=== PATIENT | female | born 1995 | race Caucasian/White ===

== ENCOUNTER 2022-10-10 14:00 | Inpatient (IN) ==
--- NOTE | 2022-10-10 15:36 | History & Physical Report ---
Date of Service October 10, 2022 Assessment & Plan (1) Supervision of normal intrauterine in primigravida: Plan Ya is a 27 year-old female at 39w2d who presents today for elective induction of labor. -Patient in agreement to proceed with IOL, will start Pitocin -Placed marx bulb -O+/GBS negative/Rubella immune -Currently 2/50%/-2 -FHT cat 1 -Patient interested in epidural, can receive epidural when desired Admission and Anticipated Discharge Date Admission Date: October 10, 2022 History of Present Illness Primary Care Provider: NO PCP Ya is a 27 year-old female at 39w2d who presents today for elective induction of labor. She has a medical history of anxiety/depression and OCD (currently on Prozac and Buspar). Today she notes a few intermittent contractions but no regular contractions. She states she had a small amount of bleeding after her office cervical exam yesterday, but denies any additional bleeding today nor any loss of fluid. She notes regular movement. 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 lactis 1 tab PO DAILY 12/21/20 10/10/22 History [Digestive Advantage Advanced] fluoxetine 20 mg capsule (Prozac) 20 mg PO DAILY 12/21/20 10/10/22 History fluoxetine 40 mg capsule (Prozac) 40 mg PO DAILY 12/21/20 10/10/22 History prenat.vits,soraya,hhq-[id number]-uxvuq 1 tab PO DAILY 12/21/20 10/10/22 History buspirone 30 mg tablet 30 mg PO DAILY 07/22/22 10/10/22 History Patient History Medical History Anxiety and depression OCD (obsessive compulsive disorder) Surgical History S/P wisdom tooth extraction Family History Other Diabetes Hepatitis Hypertension Denies family history of Ovarian cancer Breast cancer Colorectal cancer Uterine cancer Social History Smoking Status: Never smoker Second Hand Exposure: No; Hx Alcohol Use: No Hx Substance Use: No 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 [employer] Other Information That Helps Us Care for You: No Feels Safe at Home: Yes Safety Concerns: Feels Safe At This Time Assistive Devices: Glasses Review of Systems As per above Physical Exam Constitutional: WD/WN, vitals as above Eyes: Anicteric sclera ENMT: External ears and nose normal, moist mucous membranes Respiratory: normal respiratory effort, lungs clear to auscultation Cardiovascular: RRR, no murmur, no edema Skin: no rashes, warm and dry No lower extremity edema noted Psychiatric: A+Ox3, euthymic affect Genitourinary: Manual OB Exam: + cervical dilation 2 cm, + cervical effacement 50% and + station -2 OB Exam Monitor Tracing: + external FHT monitor used and + category I Exam per Dr. Burrows Results & Data Vital Signs (Past 12 Hours) Vital Signs Pulse BP 10/10/22 15:25 82 113/84 Laboratory Results OB Labs: Blood Type O Positive 03/14/22 Antibody Screen NEGATIVE 03/14/22 Hemoglobin 12.0 g/dl (12.0-16.0) 07/22/22 Hematocrit 35.3 % (34.1-44.9) 07/22/22 Mean Corpuscular Volume 91.7 fL (80.0-100.0) 03/14/22 Platelet Count 244 K/uL (130-400) 03/14/22 Rubella IgG Antibody Immune (Immune) 03/14/22 Rapid Plasma Reagin Nonreactive (Nonreactive) 03/14/22 Hepatitis B Surface Antigen. NON-REACTIVE (NON-REACTIVE) 03/14/22 Hepatitis C Antibody (EIA) NON-REACTIVE (NON-REACTIVE) 03/14/22 HIV (1&2) Ag and Ab Confirmation NON-REACTIVE (NON-REACTIVE) 03/14/22 Glucose 1 Hour 50 gm Load 60 mg/dl (70-130) L 07/22/22 Maternal Serum Alpha Fetoprotein 28.0 ng/mL 05/02/22 OB Optional Labs: Chlamydia trachomatis RNA Not Detected (NotDetected) 03/14/22 Neisseria gonorrhoeae RNA Not Detected (NotDetected) 03/14/22 Alpha Fetoprotein Triple Screen SEE NOTE 05/02/22 Labs Reviewed: neg afp--[facility] low risk panorama--[facility]' neg cf/sma--[facility] Supervising Physician Co-Signing Physician Notes Resident Physician Supervision Note: I interviewed and examined the patient. Discussed with Dr. Chan and agree with findings and plan as documented in the note. Any exceptions or clarifications are listed here: 27 yo G1 at 39 2/7 wga presents for eIOL. +FM; denies regular ctx, LOF, VB. PNI: depr/anx. VSS, SVE 2/50/-2, cephalic confirmed by bsus, EFW 7-8. 35cc marx placed after verbal consent obtained, will start pit with it. GBS neg, epidural prn Documented By: Kira Burrows MD Resident Activity Tracking Resident Involvement: Resident Care Provided Care Provided: OB Delivery
[2022-10-10] MEDS ORDERED: OXYTOCIN 30 UNITS/500 ML BAG IV PRN ×2 (15:52)
[2022-10-10 16:38] LABS: Hematocrit (blood only) 35.3 % (37.0-47.0); Mean Corpuscular Hemoglobin 30.5 pg (25.0-34.0); Mean Corpuscular Volume 89.8 fL (80.0-100.0); Mean Platelet Volume 11.5 fL (9.4-12.4); Platelet Count 212 K/uL (130-400); RDW Coefficient of Variation 13.2 % (11.5-14.5); RDW Standard Deviation 43.1 fL (36.4-46.3); Red Blood Count 3.93 M/uL (4.20-5.40); White Blood Count 7.74 K/ul (4.8-10.8)
[2022-10-10] MEDS: LACTATED RINGER'S 1,000 ML IV PRN ×2 (17:48→22:45)
[2022-10-10] MEDS ORDERED: SODIUM CHLORIDE 0.65% NA SOLN 45 ML (OCEAN) ONE (20:33)
--- NOTE | 2022-10-10 20:34 | Labor Progress Brief Note ---
Date of Service October 10, 2022 Subjective Resting comfortably Assessment & Plan (1) Encounter for elective induction of labor: Plan: 27 yo G1 at 39 2/7 wga admitted for eIOL VSS Fetus cat 1 Labor - pit at 4, now s/p arom to see if will help ctx pattern GBS neg epidural prn Admission and Anticipated Discharge Date Admission Date: October 10, 2022 Physical Exam Genitourinary: Manual OB Exam: + cervical dilation 3 cm, + cervical effacement 50%, + station -2 and + amniotic fluid (arom clear) OB Exam Monitor Tracing: + external FHT monitor used, + external uterine monitor used (q4) and + category I Results & Data Vital Signs (Past 12 Hours) Vital Signs Temp Pulse Resp BP 10/10/22 19:53 68 122/82 10/10/22 15:25 82 113/84 10/10/22 15:20 97.9 F 18 Coding Level of Care Code None Diagnoses Encounter for elective induction of labor Z34.90
--- NOTE | 2022-10-10 22:19 | Anesthesiology Consultation ---
Date of Service October 10, 2022 Assessment & Plan Chart Review Chart Review: Acceptable Risk for Surgery, Patient NOT seen in Pre Admission Testing and Acceptable Risk for Labor Epidural Consults Requested none ASA ASA2 Proposed Anesthesia Anesthesia Type: Labor Epidural and CSE History Height/Weight Height: 5 ft 7 in Weight: 79.379 kg Allergies Allergy/AdvReac Type Severity Reaction Status Date / Time No Known Allergies Allergy Verified 10/09/22 09:28 Medications Home Medications Medication Instructions Recorded Confirmed Last Taken L.acidoph, paracasei,B. lactis 1 tab PO DAILY 12/21/20 10/10/22 10/10/22 [Digestive Advantage Advanced] fluoxetine 20 mg capsule (Prozac) 20 mg PO DAILY 12/21/20 10/10/22 10/10/22 fluoxetine 40 mg capsule (Prozac) 40 mg PO DAILY 12/21/20 10/10/22 10/10/22 prenat.vits,soraya,[id number] 1 tab PO DAILY 12/21/20 10/10/22 10/10/22 buspirone 30 mg tablet 30 mg PO DAILY 07/22/22 10/10/22 10/10/22 Active Medications Generic Name Dose Route Start Last Admin Trade Name Freq PRN Reason Stop Dose Admin Lactated Ringer's 1,000 mls @ 125 mls/hr 10/10/22 15:52 10/10/22 17:48 Lr IV 10/12/22 15:51 125 mls/hr .Q8H PRN Administration L&D Protocol Protocol Oxytocin 30 units in 500 mls @ 2 mls/hr 10/10/22 15:52 10/10/22 17:48 Pitocin IV 10/12/22 15:51 0.12 units/hr .Q24H PRN 2 mls/hr Labor Induction/Augmentation Administration Protocol 0.12 UNITS/HR Past Medical History Medical History Anxiety and depression OCD (obsessive compulsive disorder) Exercise / Class Metabolic Activity II 4-5 Yardwork/Stairs/Walk up hill Past Family History Family History Other Diabetes Hepatitis Hypertension Denies family history of Ovarian cancer Breast cancer Colorectal cancer Uterine cancer Past Surgical History Surgical History S/P wisdom tooth extraction Past Anesthesia History No Hx of Anesthesia Complications and No Family Hx of Anesthesia Complications History of PONV No Hx of PONV and No Hx of Motion Sickness Social History Smoking Status: Never smoker Hx Alcohol Use: No Hx Substance Use: No Physical Exam Vital Signs Last Vital Signs Temp 36.7 C 10/10/22 20:30 Pulse 68 10/10/22 19:53 Resp 18 10/10/22 15:20 BP 122/82 10/10/22 19:53 Testing Laboratory Results 10/10/22 16:00
[2022-10-10] MEDS ORDERED: ePHEDrine sulfate 50 MG/ML AMP ONE (22:27)
[2022-10-10] MEDS ORDERED: BUPIVACAINE 0.25% PF 30 ML VIAL ONE (22:28)
[2022-10-10] MEDS ORDERED: LIDOCAINE 2%/EPINEPHRINE 1:200,000 20 ML PF ONE (22:28)
[2022-10-10] MEDS ORDERED: SODIUM CHLORIDE 0.9% PF INJ 10 ML VIAL ONE (22:28)
[2022-10-10] MEDS ORDERED: fentaNYL citrate PF 100 MCG/2 ML VIAL ONE (22:28)
[2022-10-10] MEDS ORDERED: fentaNYL 2MCG/ML ROPIVACAINE 1.25MG/ML 100 ML BAG EPI ONE (22:29)
[2022-10-10] MEDS ORDERED: diphenhydrAMINE 50 MG/ML VIAL IV PRN (23:00)
[2022-10-10] MEDS ORDERED: NALOXONE HCL 0.4 MG/1 ML VIAL/CARP IV PRN (23:00)
[2022-10-10] MEDS ORDERED: ePHEDrine sulfate 50 MG/ML AMP IV PRN (23:00)
[2022-10-10] MEDS ORDERED: NALBUPHINE HCL INJ 10 MG/ML AMP IV PRN (23:00)
[2022-10-10] MEDS ORDERED: fentaNYL 2MCG/ML ROPIVACAINE 1.25MG/ML 100 ML BAG EPI PRN (23:00)
[2022-10-10] MEDS ORDERED: ONDANSETRON INJ 2 MG/ML 2 ML VIAL IV PRN (23:00)
[2022-10-10] MEDS ORDERED: NALOXONE HCL 1 MG in SODIUM CHLORIDE 0.9% 1000ML 1,000 ML IV PRN (23:00)
[2022-10-10] MEDS ORDERED: PROMETHAZINE HCL 25 MG in SODIUM CHLORIDE 0.9% 50 ML IV PRN (23:00)
[2022-10-11] MEDS: LACTATED RINGER'S 1,000 ML IV PRN ×2 (03:51→08:09)
[2022-10-11] MEDS ORDERED: NURSING L&D Epidural Breakthrough Pain Update ONE (04:43)
--- NOTE | 2022-10-11 05:43 | Anesthesia Procedure Note ---
Date of Service October 11, 2022 Anesthesia Epidural Re-Dose Vital Signs Temp Pulse Resp BP Pulse Ox 36.7 C 85 16 115/79 99 10/11/22 05:00 10/11/22 05:39 10/11/22 05:00 10/11/22 05:39 10/11/22 05:36 Notes Pain Intensity: 5 Dilatation (cm): 9.5 Effacement (%): 100 Called by nursing to evaluate epidural as the patient is having increased pain. The epidural was re-dosed with the following medications (all medications via epidural route) after negative aspiration of the epidural catheter for CSF/HEME 1.2% lidocaine and 0.2% ropivacaine 7ml After Epidural Re-Dose Mental Status: alert / awake / arousable Pain: improving with treatment Airway Patency, RR, SpO2: stable & adequate BP & HR: stable & adequate
--- NOTE | 2022-10-11 07:19 | Labor Progress Brief Note ---
Date of Service October 11, 2022 Subjective Resting comfortably w/ redose, some pressure w/ ctx Assessment & Plan (1) Encounter for elective induction of labor: Plan: 27 yo G1 at 39 3/7 wga admitted for eIOL VSS Fetus cat 2 due to intermittent variables but still reassuring Labor - pit was turned off due to decel early this am but still progressed to complete and +1 and tiffanie. Much more comfortable w/ redose so will let pt labor down and start pushing soon GBS neg epidural in place Admission and Anticipated Discharge Date Admission Date: October 10, 2022 Physical Exam Genitourinary: Manual OB Exam: + cervical dilation 10 cm, + cervical effacement 100% and + station + 1 OB Exam Monitor Tracing: + external FHT monitor used, + external uterine monitor used (q2-4) and + category II Results & Data Vital Signs (Past 12 Hours) Vital Signs Temp Pulse Resp BP Pulse Ox 10/11/22 07:11 92 H 97 10/11/22 07:06 92 H 97 10/11/22 07:01 79 97 10/11/22 07:00 82 108/64 10/11/22 06:56 82 97 10/11/22 06:51 77 97 10/11/22 06:46 76 97 10/11/22 06:45 73 101/60 10/11/22 06:41 74 97 10/11/22 06:36 73 98 10/11/22 06:32 83 102/56 L 10/11/22 06:31 81 98 10/11/22 06:26 76 98 10/11/22 06:21 103 H 97 10/11/22 06:16 81 97 10/11/22 06:17 85 111/72 10/11/22 06:11 81 97 10/11/22 06:06 81 98 10/11/22 06:01 82 97 10/11/22 06:00 86 112/77 10/11/22 05:56 94 H 98 10/11/22 05:51 76 98 10/11/22 05:46 96 H 98 10/11/22 05:44 78 116/82 10/11/22 05:45 82 112/77 10/11/22 05:42 86 109/76 10/11/22 05:41 84 98 10/11/22 05:40 80 111/78 10/11/22 05:39 85 115/79 10/11/22 05:36 79 99 10/11/22 05:33 71 100/59 L 10/11/22 05:31 77 100 10/11/22 05:00 16 10/11/22 05:00 98.1 F 16 10/11/22 05:26 73 98 10/11/22 05:21 73 98 10/11/22 05:19 83 101/65 10/11/22 05:16 75 99 10/11/22 05:11 79 99 10/11/22 05:06 97.7 F 76 16 100 10/11/22 05:03 72 97/60 L 10/11/22 05:01 71 100 10/11/22 04:56 82 99 10/11/22 04:51 71 99 10/11/22 04:50 72 102/59 L 10/11/22 04:46 80 100 10/11/22 04:41 88 100 10/11/22 04:36 86 99 10/11/22 04:35 83 121/76 10/11/22 04:31 90 100 10/11/22 04:26 80 100 10/11/22 04:21 87 100 10/11/22 04:20 88 115/88 10/11/22 04:16 82 100 10/11/22 04:11 81 100 10/11/22 04:06 83 100 10/11/22 04:04 85 115/66 10/11/22 04:01 77 100 10/11/22 03:56 106 H 99 10/11/22 03:51 84 100 10/11/22 03:49 71 123/75 10/11/22 03:46 73 99 10/11/22 03:41 72 99 10/11/22 03:36 70 98 10/11/22 03:33 73 118/77 10/11/22 03:31 76 100 10/11/22 03:26 75 98 10/11/22 03:21 80 99 10/11/22 03:19 75 118/79 10/11/22 03:16 87 100 10/11/22 03:11 77 98 10/11/22 03:06 80 98 10/11/22 03:05 72 127/86 10/11/22 03:01 72 99 10/11/22 02:55 97.7 F 10/11/22 02:56 78 98 10/11/22 02:51 75 100 10/11/22 02:49 73 115/77 10/11/22 02:46 73 99 10/11/22 02:41 85 100 10/11/22 02:36 74 100 10/11/22 02:35 71 89/55 L 10/11/22 02:31 73 98 10/11/22 02:26 76 98 10/11/22 02:21 77 98 10/11/22 02:19 70 101/59 L 10/11/22 02:16 73 98 10/11/22 02:11 70 98 10/11/22 02:06 70 98 10/11/22 02:04 72 93/56 L 10/11/22 02:01 72 98 10/11/22 01:56 71 97 10/11/22 01:51 75 98 10/11/22 01:48 65 97/58 L 10/11/22 01:46 72 98 10/11/22 01:41 69 98 10/11/22 01:36 69 98 10/11/22 01:33 67 94/57 L 10/11/22 01:00 18 10/11/22 01:00 97.9 F 18 10/11/22 01:31 72 98 10/11/22 01:26 70 99 10/11/22 01:21 68 99 10/11/22 01:18 68 96/59 L 10/11/22 01:16 75 100 10/11/22 01:11 71 100 10/11/22 01:06 67 100 10/11/22 01:04 71 100/63 10/11/22 01:01 69 100 10/11/22 00:56 65 100 10/11/22 00:51 68 99 10/11/22 00:48 67 108/68 10/11/22 00:46 74 100 10/11/22 00:41 65 100 10/11/22 00:36 67 99 10/11/22 00:34 65 106/68 10/11/22 00:31 68 99 10/11/22 00:26 68 100 10/11/22 00:21 70 99 10/11/22 00:19 71 103/67 10/11/22 00:16 82 100 10/11/22 00:11 77 99 10/11/22 00:06 73 99 10/11/22 00:03 72 94/55 L 10/11/22 00:01 71 99 10/10/22 23:56 73 98 10/10/22 23:51 69 99 10/10/22 23:48 70 95/54 L 10/10/22 23:46 70 99 10/10/22 23:41 72 99 10/10/22 23:36 67 99 10/10/22 23:33 72 96/55 L 10/10/22 23:30 18 10/10/22 23:30 18 10/10/22 23:31 67 99 10/10/22 23:26 69 100 10/10/22 23:05 18 10/10/22 23:05 18 10/10/22 23:21 74 98 10/10/22 23:19 71 100/57 L 10/10/22 23:16 70 98 10/10/22 23:11 84 99 10/10/22 23:06 76 94 10/10/22 23:02 97.9 F 70 109/64 10/10/22 23:01 73 100 10/10/22 23:00 68 117/73 10/10/22 22:58 73 115/74 10/10/22 22:56 67 108/75 100 10/10/22 22:54 60 105/68 10/10/22 22:51 99 10/10/22 22:51 56 L 10/10/22 22:51 54 L 97/57 L 10/10/22 22:46 90 99 10/10/22 22:45 86 88 L 10/10/22 22:41 84 100 10/10/22 22:36 74 100 10/10/22 22:35 78 90 10/10/22 22:31 69 100 10/10/22 22:26 70 99 10/10/22 20:30 98.1 F 10/10/22 19:53 68 122/82 Coding Level of Care Code None Diagnoses Encounter for elective induction of labor Z34.90
[2022-10-11] MEDS: LIDOCAINE 1% LOCAL 20 ML VIAL INFIL PRN ×2 (10:28→10:43)
[2022-10-11] MEDS ORDERED: OXYTOCIN 30 UNITS/500 ML BAG IV PRN (11:12)
[2022-10-11] MEDS ORDERED: HYDROCORTISONE ACETATE 25 MG SUPP PR PRN (11:12)
[2022-10-11] MEDS ORDERED: BENZOCAINE 20% AER SPR 82.5 GM CAN EXT PRN (11:12)
[2022-10-11] MEDS ORDERED: bisacodyL 10 MG SUPP PR PRN (11:12)
[2022-10-11] MEDS ORDERED: DIPHTHERIA/TETANUS/PERTUSSIS 0.5mL SYR/VIAL (Age 7+yrs) IM ONE (11:12)
[2022-10-11] MEDS ORDERED: FLUoxetine HCL 20 MG CAP PO SCH (11:15)
--- NOTE | 2022-10-11 11:44 | Delivery Summary ---
Vaginal Delivery Summary Date of Service October 11, 2022 Vaginal Delivery Summary VAVD and 2nd Degree LAC (vaginal) Patient is a 27-year-old G1, P0 female who presents at 39-2/7 weeks for elective induction of labor. She received a cervical balloon for ripening and then Pitocin augmentation of her labor. Membranes were ruptured for clear fluid and she received effective epidural analgesia. There were intermittent variable decelerations with contractions. Despite the Pitocin being stopped, she continued to progressed to full dilation. Contractions were still about 5 to 6 minutes apart and variable decelerations continued with pushing with return to baseline in between. After pushing for approximately 2-1/2 hours and the Pitocin restarted, she was able to bring the head to +3 station. Thin meconium was now noted with pushing. The variable decelerations continue to get deeper but still with good recovery. It was decided to proceed with vacuum-assisted delivery because of the increasingly deeper variable decelerations. Patient accepted vacuum assistance and after the bladder was emptied for approximately 100 cc of urine, the vacuum was placed on the vertex as the patient was pushing. Through 2 contractions without pop offs, the male was brought to crownin g. The vacuum was then removed and the head delivered without maternal effort. There was no nuchal cord present. The rest of the infant delivered without maternal effort as well. There was a loose cord around the baby's ankle and foot. Dr. Albarado was in attendance as field cane scaler because of the ongoing variable decelerations. After the cord was clamped and cut, the baby was taken to the baby bed for further stimulation and drying. After stimulation he was making good respiratory effort and moving all 4 limbs. Of note the mother is also currently taking BuSpar and Prozac. After cord blood was obtained the placenta was expressed intact with a three-vessel cord. A second-degree vaginal laceration was repaired with 3-0 chromic in the usual fashion. 1% lidocaine was used to anesthetize the laceration site. bleeding was controlled with dilute Pitocin and fundal massage. Estimated blood loss was 300 cc. Mother and were doing well after delivery. [place] Vaginal Delivery Charge Delivery Type Details: VAVD and 2nd Degree LAC (vaginal)
[2022-10-11] MEDS: IBUPROFEN 600 MG TAB PO PRN ×2 (12:15→19:31)
--- NOTE | 2022-10-11 12:18 | Anesthesia Procedure Note ---
Date of Service October 11, 2022 Anesthesia Post Epidural Note Vital Signs Vital Signs: Temp Pulse Resp BP Pulse Ox 37.0 C 92 H 18 136/63 93 10/11/22 10:31 10/11/22 12:12 10/11/22 11:55 10/11/22 12:12 10/11/22 10:16 Pain Intensity Pelvic: Pain Intensity: 5 Notes Mental Status: alert / awake / arousable and participated in evaluation Nausea / Vomiting: adequately controlled Pain: adequately controlled Airway Patency, RR, SpO2: stable & adequate BP & HR: stable & adequate Hydration State: stable & adequate Neuraxial Anesthesia: was administered and sensory block is resolving Anesthetic Complications: no major complications apparent and Pt Satisfied with anesthetic care Epidural: Removed without complications and With tip intact
[2022-10-11] MEDS: busPIRone 15 MG TAB PO SCH ×2 (13:13→13:19)
[2022-10-11] MEDS: FLUoxetine HCL 20 MG CAP PO SCH (13:13)
[2022-10-11] MEDS: ACETAMINOPHEN 325 MG TAB PO PRN (13:13)
[2022-10-11] MEDS: oxyCODONE/ACETAMINOPHEN 5mg/325mg TAB PO PRN ×2 (14:11→20:52)
[2022-10-11] MEDS: DOCUSATE SODIUM 100 MG CAP PO SCH (19:31)
[2022-10-12] MEDS: IBUPROFEN 600 MG TAB PO PRN ×5 (00:31→18:02)
--- NOTE | 2022-10-12 06:49 | Obstetrical Progress Note ---
Date of Service October 12, 2022 Assessment & Plan (1) Encounter for elective induction of labor: (2) Supervision of normal intrauterine in primigravida: (3) Encounter for anatomic survey: Plan Ya is a 27 year-old female who is PPD #1 following vacuum assisted vaginal delivery at 39w3d. -Meeting all milestones -Vital signs reviewed and WNL, afebrile. Repeat CBC pending this a.m. -O+/GBS negative/Rubella immune -Follow up in 6 weeks for appointment -Continue routine care -Continue stool softeners while on Percocet -Anticipate discharge tomorrow Admission and Anticipated Discharge Date Admission Date: October 10, 2022 Supervising Physician Co-Signing Physician Notes Resident Physician Supervision Note: I interviewed and examined the patient. Discussed with Dr. Chan and agree with findings and plan as documented in the note. Any exceptions or c larifications are listed here: [None] Documented By: Justine Hanson MD, FACOG Subjective Ya is a 27 year-old female who is PPD #1 following vacuum assisted vaginal delivery at 39w3d. She reports feeling well overall this morning. Notes abdominal cramping with breast feeding and vaginal soreness. States that the motrin and Percocet are helpful as well as ice packs. Some burning with urination but improving, able to empty bladder. Tolerating meals overnight and able to ambulate some. Endorses passing gas, has not had a bowel movement but is taking stool softeners. Has some persistent lochia with some improvement this morning. Currently breast feeding and pumping. Review of Systems Constitutional: no fever, no chills and no sweats Respiratory: no cough, no dyspnea and no wheezing Cardiovascular: no chest pain, no palpitations and no calf pain Genitourinary: no dysuria Neurologic: no headache(s) Physical Exam Constitutional: WD/WN, vitals as above no acute distress Respiratory: no respiratory distress Auscultation: lungs clear to auscultation bilaterally; no rales, no rhonchi and no wheezes Cardiovascular: RRR, no murmur, no edema Extremities: no calf tenderness and no edema Negative Scotty's sign bilaterally. Gastrointestinal (Abdomen): Inspection/Auscultation: normal bowel sounds Genitourinary: Uterine fundus firm, palpable below the umbilicus. Results & Data Vital Signs (Past 12 Hours) Vital Signs Temp Pulse Resp BP Pulse Ox O2 Del Method 10/12/22 04:30 36.8 C 74 18 109/68 99 Room Air 10/11/22 23:25 36.5 C 79 18 110/73 98 Room Air 10/11/22 19:37 78 20 102/67 98 Room Air Resident Activity Tracking Resident Involvement: Resident Care Provided Care Provided: OB Delivery
[2022-10-12] MEDS: ACETAMINOPHEN 325 MG TAB PO PRN ×3 (07:42→19:47)
[2022-10-12] MEDS: DOCUSATE SODIUM 100 MG CAP PO SCH ×2 (07:42→19:47)
[2022-10-12] MEDS: PRENATAL VITAMIN 1 TAB PO SCH (07:42)
[2022-10-12 08:11] LABS: Hematocrit (blood only) 28.5 % (37.0-47.0); Hemoglobin 9.6 g/dl (12.0-16.0); Mean Corpuscular Hemoglobin 30.7 pg (25.0-34.0); Mean Corpuscular Hgb Conc 33.7 g/dL (32.0-36.0); Mean Corpuscular Volume 91.1 fL (80.0-100.0); Platelet Count 152 K/uL (130-400); RDW Coefficient of Variation 13.5 % (11.5-14.5); RDW Standard Deviation 44.6 fL (36.4-46.3); Red Blood Count 3.13 M/uL (4.20-5.40); White Blood Count 12.21 K/ul (4.8-10.8)
[2022-10-12] MEDS: FLUoxetine HCL 20 MG CAP PO SCH (09:45)
[2022-10-12] MEDS: busPIRone 15 MG TAB PO SCH (09:46)
[2022-10-12] MEDS ORDERED: bisacodyL 5 MG TABEC PO SCH (20:00)
[2022-10-13] MEDS: IBUPROFEN 600 MG TAB PO PRN ×2 (03:23→09:05)
[2022-10-13] MEDS: ACETAMINOPHEN 325 MG TAB PO PRN (03:24)
--- NOTE | 2022-10-13 07:37 | Obstetrical Progress Note ---
Date of Service October 13, 2022 Assessment & Plan (1) Encounter for elective induction of labor: Ready for d/c, instructions reviewed. Subjective Ambulation: ambulating normally Voiding: no voiding problems Passing Gas:: Yes Diet Tolerance:: regular diet Lochia:: Small Feeding Type:: breast feeding Physical Exam Constitutional WD/WN, vitals as above Eyes PERRL, conjunctivae normal, anicteric sclerae Neck normal visual inspection Respiratory normal respiratory effort and able to speak in complete sentences; no respiratory distress and no labored breathing Cardiovascular Rate/Rhythm: regular rate and regular rhythm Extremities: no edema Chest (Breasts) Chest: normal inspection of chest Gastrointestinal (Abdomen) Inspection/Auscultation: abdomen normal to inspection Soft, postgravid Psychiatric A+Ox3, euthymic affect Genitourinary OB Exam Abdomen: + fundal height Fundus: + firm and + relation to umbilicus (fundus just below umbilicus); not tender Results & Data Vital Signs (Past 12 Hours) Vital Signs Temp Pulse Resp BP Pulse Ox O2 Del Method 10/13/22 04:20 98.4 F 75 18 108/72 98 Room Air
[2022-10-13 07:42] LABS: Hematocrit (blood only) 31.1 % (37.0-47.0); Hemoglobin 10.4 g/dl (12.0-16.0)
[2022-10-13] MEDS: DOCUSATE SODIUM 100 MG CAP PO SCH (09:04)
[2022-10-13] MEDS: PRENATAL VITAMIN 1 TAB PO SCH (09:04)
[2022-10-13] MEDS: FLUoxetine HCL 20 MG CAP PO SCH (09:05)
[2022-10-13] MEDS: busPIRone 15 MG TAB PO SCH (09:05)
--- NOTE | 2022-10-16 04:44 | Discharge Summary (DS) ---
DATE OF DELIVERY: 10/11/2022. DATE OF DISCHARGE: 10/13/2022. PRINCIPAL PROCEDURE: A vacuum-assisted vaginal delivery and second-degree perineal laceration repair HISTORY: The patient is a 27-year-old G1, P0 female who presented at 39 and 2/7 weeks for elective induction of labor. She had cervical ripeningswith a Agosto balloon insertion and then Pitocin augmentation. She progressed to full dilation with intermittent variable decelerations. Contractions were about 5-6 minutes apart because Pitocin had to be stopped because of the decelerations, although she progressed to full dilation on her own. During the pushing stage, there were deep variable decelerations, but good recovery to baseline after each contraction. She pushed for about 2-1/2 hours with multiple position changes. She was able to bring the vertex to +3 station. Through two contractions, the was delivered and the rest of the delivered easily. The infant was then attended to by sample driller who was called to delivery because of the concern for the variable decelerations. Of note, the mother was on BuSpar and Prozac during her . After the infant received stimulation, he was making good respiratory effort and moving all 4 limbs. A second-degree vaginal laceration was repaired in the usual fashion. She had an uncomplicated course. She was eating and drinking and ambulating without difficulty on the day of her delivery. She was also voiding without any issues as well. She remained afebrile throughout her hospital stay. Hemoglobin on admission was 12.0, hematocrit of 35.3. First day, 9.6 hemoglobin and hematocrit 28.5. Second day hemoglobin 10.4, hematocrit 31.1. She was sent home with the usual instructions with followup in 6 weeks for exam. She is to call for temperature of 101 degrees or higher, heavy vaginal bleeding, burning with urination, increased redness, drainage or pain, calf tenderness or any other concerns. Job ID: [id number] [facility]
== END 2022-10-13 10:55 | disposition home or self-care (01) | DRG 807 ==
LOC: 4S1 15:00 → 4E2 10-11 13:20

== ENCOUNTER 2024-08-15 13:32 | Inpatient (IN) ==
[2024-08-15] MEDS: OXYTOCIN 10 UNITS/ML 10ML VIAL IM ONE (13:48)
[2024-08-15] MEDS ORDERED: LACTATED RINGER'S 1,000 ML IV PRN (13:48)
[2024-08-15] MEDS ORDERED: OXYTOCIN 30 UNITS/NSS 30 UNITS/500 ML BAG IV PRN (13:48)
[2024-08-15] MEDS ORDERED: LIDOCAINE 1% LOCAL 20 ML VIAL INFIL PRN (13:48)
[2024-08-15] MEDS: LIDOCAINE 1% LOCAL 20 ML VIAL ONE (13:55)
[2024-08-15] MEDS ORDERED: HYDROCORTISONE ACETATE 25 MG SUPP PR PRN (13:58)
[2024-08-15] MEDS ORDERED: oxyCODONE/ACETAMINOPHEN 5mg/325mg TAB PO PRN (13:58)
[2024-08-15] MEDS: OXYTOCIN 30 UNITS/NSS 30 UNITS/500 ML BAG IV PRN (14:00)
[2024-08-15] MEDS: DIPHTHER/TETAN/PERTUS Vaccine (Tdap, Adol/Adult) 0.5mL IM ONE (14:28)
[2024-08-15 14:51] LABS: Base Excess Cord Arterial Bld -0.4 mEq/L (-9-1.8); CO2 Cord Arterial Blood 53 mmHg (39.1-73.5); HCO3 Cord Arterial Blood 27 mmol/L (19.7-28.5); Oxygen Sat Cord Arterial Blood < 60.0 % (<60); PO2 Cord Arterial Blood < 20 mmHg (4.1-31.7); pH Cord Arterial Blood 7.31 (7.1-7.38)
[2024-08-15] MEDS: IBUPROFEN 600 MG TAB PO PRN (14:51)
[2024-08-15 14:52] LABS: Base Excess Cord Venous Blood -3.8 mEq/L (-7.7-1.9); Cord Venous Blood HCO3 25 mmol/L (18.4-26.8); Cord Venous Blood PCO2 61 mmHg (30.4-57.2); Cord Venous Blood PO2 < 20 mmHg (14.1-43.3); Cord Venous Blood pH 7.22 (7.20-7.44); O2 Saturation Cord Venous Bld < 60.0 % (<68)
[2024-08-15] MEDS: BENZOCAINE 20% SPRY 85 APPLN/85 GM CAN EXT PRN (14:54)
[2024-08-15 14:58] LABS: Hematocrit (blood only) 34.7 % (37.0-47.0); Hemoglobin 11.5 g/dl (12.0-16.0); Mean Corpuscular Hgb Conc 33.1 g/dL (32.0-36.0); Mean Corpuscular Volume 87.6 fL (80.0-100.0); Mean Platelet Volume 11.7 fL (9.4-12.4); Platelet Count 202 K/uL (130-400); RDW Coefficient of Variation 14.3 % (11.5-14.5); RDW Standard Deviation 45.3 fL (36.4-46.3); Red Blood Count 3.96 M/uL (4.20-5.40); White Blood Count 6.94 K/ul (4.8-10.8)
--- NOTE | 2024-08-15 15:34 | Obstetrical Progress Note ---
Date of Service August 15, 2024 Assessment & Plan (1) : Plan: Patient is a 29-year-old at term who presented to labor and delivery in labor. Show found to be fully dilated and ready to push. Patient went on to deliver a live in cephalic presentation. There was no nuchal cord. Placenta spontaneously delivered. Rest of the liver information is in the delivery note. Admission and Anticipated Discharge Date Admission Date: August 15, 2024 Results & Data Vital Signs (Past 12 Hours) Vital Signs Pulse BP Pulse Ox 08/15/24 15:21 77 08/15/24 15:21 141/71 H 08/15/24 15:08 75 08/15/24 15:08 97/59 L 08/15/24 14:51 93 H 08/15/24 14:51 127/63 08/15/24 14:36 85 08/15/24 14:36 113/69 08/15/24 14:20 83 08/15/24 14:20 104/58 L 08/15/24 13:50 110 H 151/86 H 08/15/24 13:42 91 08/15/24 13:42 88 08/15/24 13:42 91 H 98 (1) Weeks of gestation: 37 weeks Qualified Code(s): Z3A.37 - 37 weeks gestation of
--- NOTE | 2024-08-15 15:39 | Delivery Summary ---
Vaginal Delivery Summary Date of Service August 15, 2024 Vaginal Delivery Summary DELIVERY NOTE Patient presented to labor and delivery and had a precipitous delivery. Patient delivered a live male in left occiput anterior presentation there was no nuchal cord. Infant was delivered and placed on mother's abdomen. Delayed cord clamping was performed. Cord blood is obtained Cord gasses are obtained Meconium is absent Placenta is spontaneously delivered. Placenta appears grossly normal and has 3 vessel cord Inspection of the perineum showed a second-degree midline laceration as well as a periuretheral tear. Laceration is repaired in layers with 3-0 Vicryl in layer Quantitative blood loss is 153 cc Infants weight and scores are in the pediatric record Mother and baby are stable in in the recovery
[2024-08-15] MEDS: ACETAMINOPHEN 325 MG TAB PO PRN (17:59)
[2024-08-15] MEDS: DOCUSATE SODIUM 100 MG CAP PO SCH (20:52)
[2024-08-15] MEDS: busPIRone 15 MG TAB PO SCH (20:53)
[2024-08-16 05:05] VITALS: TEMP 98.2
[2024-08-16 06:11] LABS: Hemoglobin 10.3 g/dl (12.0-16.0)
--- NOTE | 2024-08-16 06:30 | Obstetrical Progress Note ---
Date of Service <Chuckie Agrawal MD - Last Filed: 08/16/24 07:07> August 16, 2024 Assessment & Plan <Chuckie Agrawal MD - Last Filed: 08/16/24 07:07> (1) care and examination: Plan PPD#1 following at 37 weeks. Stable. Rh+, gbs -, ri, vitals and H/H wnl Plan for DC later today. Discussed d/c instructions, schedule f/u in 6 weeks <Xena Hoskins MD, FACOG - Last Filed: 08/16/24 07:14> (1) care and examination: Subjective <Chuckie Agrawal MD - Last Filed: 08/16/24 07:07> Patient is a 29y/o female who is PPD#1 following at 37 weeks. Mild abd pain/cramping, well managed on analgesics Is voiding, tolerating meals, ambulating normally Having appropriate lochia Planning for exclusive . Constitutional: no fever, no chills or no sweats Respiratory: no dyspnea Cardiovascular: no chest pain, no palpitations or no calf pain Breast: no breast pain Gastrointestinal: no nausea or no vomiting Genitourinary (female): no dysuria Neurologic: no headache(s) no changes in vision, no headaches Physical Exam <Chuckie Agrawal MD - Last Filed: 08/16/24 07:07> General: Alert, oriented. No acute distress. Cardiac: Regular rate and rhythm, no murmurs, rubs, or gallops. Respiratory: Clear to auscultation bilaterally. No increased work of breathing. Symmetrical chest rise. No respiratory distress. Abdomen: Soft, nontender, nondistended. Bowel sounds present. Uterus: Uterine fundus firm, nontender, palpable 1 cm below the umbilicus. Lower extremities: No lower extremity edema or swelling. No deep calf pain. Results & Data <Chuckie Agrawal MD - Last Filed: 08/16/24 07:07> Vital Signs (Past 12 Hours) Vital Signs Temp Pulse Resp BP Pulse Ox O2 Del Method 08/16/24 04:20 36.8 C 89 18 106/69 98 Room Air 08/16/24 00:35 36.4 C L 74 18 115/75 98 Room Air 08/15/24 19:30 36.8 C 71 18 109/69 97 Room Air Laboratory Results 08/16/24 05:53 Supervising Physician <Xena Hoskins MD, FACOG - Last Filed: 08/16/24 07:14> Co-Signing Physician Notes Resident Physician Supervision Note: I interviewed and examined the patient. Discussed with Dr. Agrawal and agree with findings and plan as documented in the note. Any exceptions or clarifications are listed here: Feels well. Nl ppd 1. Desires d/c at 24 hours. instructions reviewed. Documented By: Xena Hoskins MD, FACOG Resident Activity Tracking <Chuckie Agrawal MD - Last Filed: 08/16/24 07:07> Resident Involvement: Resident Care Provided Care Provided: Adult Hospital Medicine
[2024-08-16] MEDS: PRENATAL VITAMIN 1 TAB PO SCH (07:41)
[2024-08-16] MEDS: FLUoxetine HCL 20 MG CAP PO SCH (07:42)
[2024-08-16 08:48] VITALS: BP 105/70; PULSE 84; RESP 16; O2SAT 99
[2024-08-16] MEDS ORDERED: bisacodyL 5 MG TABEC PO SCH (20:00)
[2024-08-17] MEDS ORDERED: bisacodyL 10 MG SUPP PR PRN (13:58)
== END 2024-08-16 15:00 | disposition home or self-care (01) | DRG 807 ==
LOC: OPB 13:32 → 4S1 13:39 → 4E2 17:59